=== PATIENT | male | born 1995 | race Caucasian/White ===

== ENCOUNTER 2021-09-12 04:11 | Emergency (ER) | payer OTHER ==
[~2021-09-12] VITALS: Ht 175.3 cm; Wt 86.2 kg
[~2021-09-12 04:11] MED LIST: CIPRO250 M1 PO; DOXYCYCLINE 10100 MG PO; FLEXERIL PO; ULTRAM 50MG TAB50 MG PO; VENTOLIN HFA 1818 GM
[2021-09-12 05:22] LABS: ABSOLUTE LYMPHOCYTES 1.2 thou/uL (0.8-5.3); ABSOLUTE MONOCYTES 1.1 thou/uL (0.0-1.2); BASOPHILS 0.2 %; EOSINOPHILS 0.1 %; HEMATOCRIT 42.6 % (42.0-52.0); HEMOGLOBIN 14.7 gm/dL (14.0-18.0); LYMPHOCYTES 9.1 %; MCH 29.2 pg (26.0-34.0); MCHC 34.5 g/dL (28.0-37.0); MCV 84.7 fL (80.0-100.0); MONOCYTES 7.9 %; MPV 7.1 fl. (7.2-11.1); NUCLEATED RBCS 0 /100WBC; PLATELET COUNT* 412 thou/uL (150-400); POLYS 82.7 %; RBC 5.04 mil/uL (4.50-6.00); RDW-CV 13.8 % (10.5-14.5); WBC 13.3 thou/uL (4.0-11.0)
[2021-09-12 05:50] LABS: CALCIUM 8.5 mg/dL (8.5-10.1); CREATININE 1.1 mg/dL (0.6-1.3); POTASSIUM 3.2 mmol/L (3.5-5.1)
[2021-09-12] MEDS ORDERED: PERCOCET 7.5-31 EAC1 PO (06:31)
[2021-09-12] MEDS ORDERED: ZOFRAN ODT4 MG PO (06:32)
[2021-09-12 08:05] VITALS: BP 157/92
== END 2021-09-12 08:05 | disposition home or self-care (01) ==
LOC: M.ERS 04:11
PROVIDERS: Emergency Medicine
DX: N20.1 Calculus of ureter (principal); J45.909 Unspecified asthma, uncomplicated; Z87.442 Personal history of urinary calculi; Z79.51 Long term (current) use of inhaled steroids; Z88.2 Allergy status to sulfonamides

== ENCOUNTER 2021-09-14 14:39 | Observation (INO) | payer OTHER ==
[~2021-09-14] VITALS: Ht 175.3 cm; Wt 86.8 kg
--- NOTE | ~2021-09-14 | OP ---
[address] [address] OPERATIVE REPORT Name: PRASANNA AZUL Room: [address] [place] Pa#: [id number] Admission: 09/14/21 Attend Phys: Andrea Javier MD Discharge: 09/15/21 Date of : 89 Report #: [id number] THIS REPORT FOR: cc: Ishan Jarquin Bradley L. DO Wright, Andrew D. MD ~ DATE OF SURGERY: 09/15/2021 PREOPERATIVE DIAGNOSES: Right distal ureteral calculus, 2 mm; flank pain; hydronephrosis. POSTOPERATIVE DIAGNOSES: Right distal ureteral calculus, 2 mm; flank pain; hydronephrosis. PROCEDURE: Cystoscopy with right ureteroscopy, basket stone extraction, double-J stent. SURGEON: Gregory Grossman MD. ANESTHESIA: General. COMPLICATIONS: None. DRAINS: Right 6 x 28 double-J stent. FINDINGS: Right distal ureteral stone. HISTORY: This is a 26-year-old who has refractory pain with a distal ureteral stone of 2 mm, unable to pass and now presents for definitive management with surgery with ureteroscopy. I discussed this in detail and gave me informed consent. OPERATIVE PROCEDURE: He was taken back to the operating room and given perioperative antibiotics and general anesthetic, prepped and draped in standard sterile fashion in dorsal lithotomy position on the operating table. Surgical timeout was performed. I performed panendoscopy and cystoscopy with a 22-German cystoscope and the urethra and the bladder appeared to be normal. I cannulated the right ureteral orifice with a sensor wire, initially would not go in because of the stone being impacted. I then switched out to a 4.5-German semirigid ureteroscope. I was able to intubate the distal ureter and seeing that the stone was lodged there, I used a guidewire. I passed a guidewire beyond the level of the stone up into the kidney under fluoroscopic guidance. I offloaded my scope and then we went back in alongside the guidewire. Then, I was able to get to the level of the stone after I intubated the distal ureter. We could see the stone. [place] [address] OPERATIVE REPORT Name: PRASANNA AZUL Room: [address] [place] Pa#: [id number] Admission: 09/14/21 Attend Phys: Andrea Javier MD Discharge: 09/15/21 Date of : 89 Report #: [id number] the grasper, which was a 0 tip basket and pulled it out to the meatus. There was no other stone seen. I offloaded my ureteroscope, unloaded my cystoscope and my guidewire, passed my open-ended catheter up to the UPJ and opacified the collecting system showing no extravasation, measured out ureteral length and passed a 6 x 28 double-J stent with a nice coil seen in the renal pelvis and bladder. The bladder was drained. He tolerated the procedure well. Follow up in the office for 1-week for cysto and stent removal. By: [id number] Grossman MD /nt
[~2021-09-14 14:39] MED LIST changes: +PERCOCET 7.5-31 EAC1 PO; +ZOFRAN ODT4 MG PO
[2021-09-14 15:02] VITALS: BP 151/103
[2021-09-14 15:16] LABS: HEMATOCRIT 43.4 % (42.0-52.0); HEMOGLOBIN 15.5 gm/dL (14.0-18.0); MCH 29.8 pg (26.0-34.0); MCHC 35.7 g/dL (28.0-37.0); MCV 83.5 fL (80.0-100.0); MPV 7.4 fl. (7.2-11.1); RBC 5.2 mil/uL (4.50-6.00); RDW-CV 13.5 % (10.5-14.5); WBC 10.2 thou/uL (4.0-11.0)
[2021-09-14 15:25] LABS: CALCIUM 9.1 mg/dL (8.5-10.1); CREATININE 1.4 mg/dL (0.6-1.3); POTASSIUM 3.4 mmol/L (3.5-5.1)
[2021-09-14 15:30] LABS: ALBUMIN 4.7 g/dL (3.4-5.0); TOTAL BILIRUBIN 0.6 mg/dL (<0.1-1.0); TOTAL PROTEIN 7.7 g/dL (6.4-8.2)
[2021-09-14 16:13] LABS: URINE BLOOD 2+ (Negative); URINE CLARITY CLEAR; URINE COLOR YELLOW; URINE GLUCOSE-RANDOM NEGATIVE (Negative); URINE KETONES 2+ (Negative); URINE LEUKOCYTES-REFLEX NEGATIVE (Negative); URINE NITRITE-REFLEX NEGATIVE (Negative); URINE PROTEIN TRACE (Negative); URINE UROBILINOGEN 0.2 E.U./dl (0.2-1.0)
[2021-09-14 16:16] LABS: ACETEST (KETONE CONFIRMATORY) Small (Negative); ICTOTEST (BILI CONFIRMATORY) Positive (Negative); SQUAMOUS 0-3 Few /LPF (0-3); URINE BILIRUBIN 1+ (Negative)
[2021-09-14 16:17] LABS: BACTERIA-REFLEX None Seen /HPF (None Seen); CASTS None Seen /LPF (None Seen); CRYSTALS None Seen /LPF (None Seen); URINE RBC 3-10 Few /HPF (0-2); URINE WBC-REFLEX None Seen /HPF (0-5)
[2021-09-14 16:22] LABS: AMP/METHAMP Negative (Negative); BARBITURATES Negative (Negative); BENZODIAZEPINES Negative (Negative); COCAINE Negative (Negative); METHADONE Negative (Negative); OPIATES POSITIVE (Negative); PCP Negative (Negative); THC Negative (Negative)
[2021-09-14 23:51] VITALS: BP 123/84
[2021-09-15 06:00] LABS: ABSOLUTE LYMPHOCYTES 1.7 thou/uL (0.8-5.3); ABSOLUTE MONOCYTES 0.7 thou/uL (0.0-1.2); ABSOLUTE NEUTROPHILS 3.8 thou/uL (1.6-8.1); BASOPHILS 0.2 %; CALCIUM 8.2 mg/dL (8.5-10.1); EOSINOPHILS 0.3 %; HEMATOCRIT 36.3 % (42.0-52.0); LYMPHOCYTES 27.7 %; MCH 29.2 pg (26.0-34.0); MCHC 34.5 g/dL (28.0-37.0); MCV 84.7 fL (80.0-100.0); MONOCYTES 10.6 %; MPV 7.5 fl. (7.2-11.1); NUCLEATED RBCS 0 /100WBC; POLYS 61.2 %; POTASSIUM 3.8 mmol/L (3.5-5.1); RBC 4.29 mil/uL (4.50-6.00); RDW-CV 14.1 % (10.5-14.5); WBC 6.2 thou/uL (4.0-11.0)
[2021-09-15 06:06] LABS: HEMOGLOBIN 12.5 gm/dL (14.0-18.0); PLATELET COUNT* 311 thou/uL (150-400)
[2021-09-15 08:00] VITALS: BP 109/69
[2021-09-15 16:01] VITALS: BP 109/69
== END 2021-09-15 17:09 | disposition home or self-care (01) ==
LOC: M.ERS 14:39 → M.2W 16:12 → M.TBA-ER 16:12 → M.2W 16:12
PROVIDERS: Emergency Medicine Emergency Medical Services; ADMIT Internal Medicine; ATTEND Internal Medicine
DX: N13.2 Hydronephrosis with renal and ureteral calculous obstruction (principal); N17.9 Acute kidney failure, unspecified; Z20.822 Contact with and (suspected) exposure to COVID-19; R11.2 Nausea with vomiting, unspecified; F17.200 Nicotine dependence, unspecified, uncomplicated; Z88.5 Allergy status to narcotic agent; Z88.8 Allergy status to other drugs, medicaments and biological substances; Z88.2 Allergy status to sulfonamides; Z79.899 Other long term (current) drug therapy